=== PATIENT | male | born 1960 | race Caucasian/White ===

== ENCOUNTER 2018-05-13 10:49 | Observation (INO) | payer OTHER ==
[~2018-05-13] VITALS: Ht 180.3 cm; Wt 119.8 kg
[~2018-05-13 10:49] MED LIST: BL ADULT ASA81 MG PO; CIPRO XR500 MG PO; OMEPRAZOLE20 MG PO
[2018-05-13] MEDS ORDERED: DIPHENHYDRAM50 M2 PO (10:57)
[2018-05-13] MEDS ORDERED: BUSPIRONE10 MG PO ×2 (10:58→10:59)
[2018-05-13] MEDS ORDERED: ATIVAN1 M1 PO ×2 (11:00→11:01)
[2018-05-13] MEDS ORDERED: METAMUCIL FIBE51.7 % PO (11:04)
[2018-05-13] MEDS ORDERED: MI-ACID GAS80 MG PO (11:05)
[2018-05-13] MEDS ORDERED: ATIVAN2 MG PO (11:09)
[2018-05-13 11:10] LABS: HEMATOCRIT 47.5 % (39.0-50.0); HEMOGLOBIN 16.4 g/dl (14.0-18.0); IMMATURE GRANULOCYTES 0.2 % (0.0-5.0); MEAN CORPUSCULAR HGB CONC 34.5 g/L CALC (32.0-36.0); NEUT# 3.83 thou/uL (1.82-7.42); RED BLOOD COUNT 5.46 mill/uL (4.70-6.10); RED CELL DISTRI WIDTH 12.5 % (11.5-15.5)
[2018-05-13] MEDS ORDERED: TAMSULOSIN0.4 MG PO (11:13)
[2018-05-13] MEDS ORDERED: METHOCARBAM750 MG PO (11:13)
[2018-05-13] MEDS ORDERED: LIPITOR20 MG PO (11:14)
[2018-05-13] MEDS ORDERED: CALCIUM CARB500 MG PO (11:15)
[2018-05-13] MEDS ORDERED: BENTYL10 MG PO (11:16)
[2018-05-13] MEDS ORDERED: MOBIC7.5 M1 PO (11:17)
[2018-05-13] MEDS ORDERED: LORATADINE10 M1 PO (11:17)
[2018-05-13] MEDS ORDERED: OMEPRAZOLE20 M1 PO (11:18)
[2018-05-13 11:28] LABS: ANION GAP 15 (6-22 (CALC)); BUN 15 mg/dL (9-20); BUN/CREATININE RATIO 14 (12-20 (CALC)); CARBON DIOXIDE 25 mmol/l (22-30); CHLORIDE 107 mmol/l (95-108); GFR > 60 ML/MIN (>=60 (CALC)); GFR FOR AFR.AMER. > 60 ML/MIN (>=60 (CALC)); POTASSIUM 4.4 mmol/l (3.5-5.1); SODIUM 142 mmol/l (137-146)
[2018-05-13 14:44] VITALS: BP 131/82
[2018-05-13 17:35] VITALS: BP 129/87
[2018-05-13 19:46] VITALS: BP 129/73
[2018-05-14 00:52] VITALS: BP 119/69
[2018-05-14 04:50] VITALS: BP 124/74
[2018-05-14 06:47] LABS: HEMATOCRIT 48.4 % (39.0-50.0); HEMOGLOBIN 16.3 g/dl (14.0-18.0); IMMATURE GRANULOCYTES 0.2 % (0.0-5.0); MEAN CELL VOLUME 88.6 fL CALC (80.0-100.0); MEAN CORPUSCULAR HGB 29.9 pG CALC (26.0-32.0); MEAN CORPUSCULAR HGB CONC 33.7 g/L CALC (32.0-36.0); NEUT# 3.39 thou/uL (1.82-7.42); RED BLOOD COUNT 5.46 mill/uL (4.70-6.10); RED CELL DISTRI WIDTH 12.8 % (11.5-15.5)
[2018-05-14 07:06] LABS: ALKALINE PHOSPHATASE 64 u/l (38-126); ANION GAP 11 (6-22 (CALC)); BILIRUBIN, TOTAL 1.1 mg/dL (0.0-1.4); BUN 16 mg/dL (9-20); BUN/CREATININE RATIO 16 (12-20 (CALC)); CARBON DIOXIDE 27 mmol/l (22-30); CHLORIDE 106 mmol/l (95-108); GFR > 60 ML/MIN (>=60 (CALC)); GFR FOR AFR.AMER. > 60 ML/MIN (>=60 (CALC)); POTASSIUM 4.7 mmol/l (3.5-5.1); SGOT/AST 33 u/l (17-59); SODIUM 139 mmol/l (137-146); TOTAL PROTEIN 6.6 g/dL (6.3-8.2)
[2018-05-14 11:15] VITALS: BP 120/77
[2018-05-14] MEDS ORDERED: ELIQUIS5 MG PO (13:34)
[2018-05-14] MEDS ORDERED: LOPRESSOR 550 MG/TAB PO (13:34)
== END 2018-05-14 14:58 | disposition designated cancer center or children's hospital (05) | DRG 310 ==
LOC: ED 10:49 → ED-I 11:38 → ED 12:09 → MS2 12:10
PROVIDERS: Family Medicine; ADMIT Internal Medicine Nephrology; ATTEND Internal Medicine Nephrology
DX: I48.91 Unspecified atrial fibrillation (principal); R07.9 Chest pain, unspecified; I10 Essential (primary) hypertension; E78.5 Hyperlipidemia, unspecified; F31.9 Bipolar disorder, unspecified; K21.9 Gastro-esophageal reflux disease without esophagitis; N40.1 Benign prostatic hyperplasia with lower urinary tract symptoms; R35.1 Nocturia; G89.29 Other chronic pain
CPT/HCPCS: G0378; J1650

== ENCOUNTER 2019-03-01 10:31 | Emergency (ER) | payer OTHER ==
[~2019-03-01] VITALS: Ht 180.3 cm; Wt 127.3 kg
[~2019-03-01 10:31] MED LIST changes: +ATIVAN1 M1 PO; +ATIVAN2 MG PO; +BENTYL10 MG PO; +BUSPIRONE10 MG PO; +CALCIUM CARB500 MG PO; +DIPHENHYDRAM50 M2 PO; +ELIQUIS5 MG PO; +LIPITOR20 MG PO; +LOPRESSOR 550 MG/TAB PO; +LORATADINE10 M1 PO; +METAMUCIL FIBE51.7 % PO; +METHOCARBAM750 MG PO; +MI-ACID GAS80 MG PO; +MOBIC7.5 M1 PO; +OMEPRAZOLE20 M1 PO; +TAMSULOSIN0.4 MG PO
[2019-03-01] MEDS ORDERED: BUSPIRONE5 MG PO (10:50)
[2019-03-01] MEDS ORDERED: METOPROL TAR25 MG PO (10:55)
[2019-03-01] MEDS ORDERED: ISOSORB MONO30 MG PO (10:56)
[2019-03-01] MEDS ORDERED: DANDRUFF11 EX (10:59)
[2019-03-01 11:00] LABS: HEMATOCRIT 41.1 % (39.0-50.0); HEMOGLOBIN 13.7 g/dl (14.0-18.0); IMMATURE GRANULOCYTES 0.2 % (0.0-5.0); MEAN CELL VOLUME 88.4 fL CALC (80.0-100.0); MEAN CORPUSCULAR HGB 29.5 pG CALC (26.0-32.0); MEAN CORPUSCULAR HGB CONC 33.3 g/L CALC (32.0-36.0); NEUT# 2.28 thou/uL (1.82-7.42); RED BLOOD COUNT 4.65 mill/uL (4.70-6.10); RED CELL DISTRI WIDTH 12.5 % (11.5-15.5)
[2019-03-01 11:31] LABS: ANION GAP 11 (6-22 (CALC)); BUN 14 mg/dL (9-20); BUN/CREATININE RATIO 14 (12-20 (CALC)); CARBON DIOXIDE 27 mmol/l (22-30); CHLORIDE 106 mmol/l (95-108); GFR > 60 ML/MIN (>=60 (CALC)); GFR FOR AFR.AMER. > 60 ML/MIN (>=60 (CALC)); POTASSIUM 4.3 mmol/l (3.5-5.1); SODIUM 139 mmol/l (137-146)
[2019-03-01 12:45] LABS: PROTHROMBIN TIME 10.8 SECONDS (9.0-12.5)
[2019-03-01 16:08] VITALS: BP 119/56
== END 2019-03-01 16:08 | disposition short-term general hospital (02) | DRG 303 ==
LOC: ED 10:31
PROVIDERS: Family Medicine
DX: I25.110 Atherosclerotic heart disease of native coronary artery with unstable angina pectoris (principal); I48.91 Unspecified atrial fibrillation; I34.1 Nonrheumatic mitral (valve) prolapse
CPT/HCPCS: J1644

== ENCOUNTER 2024-05-16 09:44 | Day surgery (SDC) | payer OTHER ==
[~2024-05-16] VITALS: Ht 180.3 cm; Wt 108.0 kg
[~2024-05-16 09:44] MED LIST changes: +BUSPIRONE5 MG PO; +CRESTOR40 MG PO; +CVS MELATONIN10 MG; +DANDRUFF11 EX; +DIPYRIDAMOLE25 MG PO; +FUROSEMIDE20 MG PO; +ISOSORB MONO30 MG PO; +METOPROL TAR25 MG PO; +NITROSTAT0.4 MG SL; +ROSUVASTATIN CAL5 MG
[2024-05-16] MEDS ORDERED: METOCLOPRAMIDE HCL 10 MG/2 ML SDV ONE (09:47)
[2024-05-16] MEDS ORDERED: FAMOTIDINE 10MG/ML 2ML SDV IV ONE (09:48)
[2024-05-16] MEDS ORDERED: LACTATED RINGER'S 1,000 ML IV ONE (09:48)
[2024-05-16] MEDS ORDERED: BUPIVACAINE HCL 0.25% 25 MG/10 ML SDV ONE (09:55)
[2024-05-16] MEDS ORDERED: STERILE WATER FOR IRRIGATION 1,000 ML BTL IR ONE (09:55)
[2024-05-16] MEDS ORDERED: BUPIVACAINE 133 MG/10 ML VIAL IJ ONE (09:55)
[2024-05-16] MEDS ORDERED: SODIUM CHLORIDE 1,000 ML BTL IR ONE (09:55)
[2024-05-16] MEDS ORDERED: SODIUM CHLORIDE 0.9% 10 ML SYR ONE (10:22)
[2024-05-16] MEDS ORDERED: SODIUM CHLORIDE 0.9% 100 ML IV ONE (10:35)
[2024-05-16] MEDS ORDERED: ceFAZolin Sodium 2 GM/VIAL SDV ONE (10:35)
[2024-05-16] MEDS ORDERED: TORADOL PO (11:28)
[2024-05-16] MEDS ORDERED: HYDROmorphone HCL 2 MG/AMP ONE (11:45)
[2024-05-16] MEDS ORDERED: ONDANSETRON HCl 4 MG/2 ML SDV ONE (12:12)
[2024-05-16 12:53] VITALS: BP 126/62
[2024-05-16] MEDS ORDERED: MIDAZOLAM HCL 2 MG/2 ML VIAL IV ONE (13:27)
[2024-05-16] MEDS ORDERED: KETOROLAC TROMETHAMINE 30 MG/ML SDV IV ONE (13:27)
[2024-05-16] MEDS ORDERED: LIDOCAINE HCL 2% 2ML SDV IV ONE (13:27)
[2024-05-16] MEDS ORDERED: ACETAMINOPHEN 1,000 MG/100 ML VIAL IV ONE (13:27)
[2024-05-16] MEDS ORDERED: GLYCOPYRROLATE 0.2 MG/ML IV ONE (13:27)
[2024-05-16] MEDS ORDERED: PROPOFOL 200 MG/20 ML VIAL IV ONE (13:27)
[2024-05-16] MEDS ORDERED: DEXAMETHASONE SODIUM PHOSPHATE PF 10 MG/ML SDV IV ONE (13:27)
[2024-05-16] MEDS ORDERED: LACTATED RINGER'S 1,000 ML BAG IV ONE (13:27)
== END 2024-05-16 13:10 | disposition home or self-care (01) | DRG 352 ==
LOC: ORM 09:44
PROVIDERS: ATTEND Surgery
PROC: 0YU50JZ Supplement Right Inguinal Region with Synthetic Substitute, Open Approach (ICD-10-PCS; principal; 2024-05-16)
DX: K40.90 Unilateral inguinal hernia, without obstruction or gangrene, not specified as recurrent (principal); D17.6 Benign lipomatous neoplasm of spermatic cord; E78.5 Hyperlipidemia, unspecified
CPT/HCPCS: C9290; J0131; J0690; J1100; J1171; J1596; J2405; J2765